=== PATIENT | female | born 1955 | race Caucasian/White ===

== ENCOUNTER 2023-08-30 08:20 | Emergency (ER) | payer MEDICARE, OTHER ==
[~2023-08-30] VITALS: Ht 160 cm; Wt 92.0 kg
[2023-08-30] MEDS ORDERED: hydrALAZINE INJECTION 20 MG/ML VIAL IV STA (08:34)
--- NOTE | 2023-08-30 08:38 | ED Neurological Problem ---
General Chief Complaint: General Problems/Pain Stated Complaint: LT SIDED NUMBNESS Source: patient History of Present Illness Date Seen by Provider: Aug 30, 2023 Time Seen by Provider: 08:21 Initial Comments 68-year-old female presenting with complaints of face and arm numbness on the left side that started around 7:45 AM. She states that this is resolved now. She denies any weakness or numbness in other areas. She did take her blood pressure and noted it was high so she took her dose of lisinopril and clonidine. She is supposed to be taking lisinopril daily but has had 1 time in the last week in the office today. She has clonidine just for when the blood pressure is high so she took a dose of that today. She does not regularly check her blood pressure so is unsure how high it usually runs. She denies having a difficulty swallowing, difficulty with her speech, chest pain, nausea, shortness of breath. She states that she had some blurred vision earlier but that has resolved as well. She has a history of hypertension but is not consistent with treating it. She also drinks at least several beers on a daily basis. Timing/Duration: 1/2 hour Severity: mild Associated Symptoms: No confusion, No fatigue, No fever/chills, No insomnia, No loss of consciousness, No muscle spasms, No nausea/vomiting, No numbness in legs/feet, No paresthesia, No ringing in ears, No seizures, No sleepy, No slurred speech, No tingling in legs/feet, No trouble walking, No weakness Allergies and Home Medications Allergies Coded Allergies: No Known Drug Allergies (Unverified , 08/30/23) Patient Home Medication List Home Medication List Reviewed: Yes Aspirin (Aspirin EC) 81 Mg Tablet.dr, 81 MG PO DAILY Prescribed by: BAILEE LAY on 08/30/23 1031 Clopidogrel Bisulfate (Plavix) 75 Mg Tablet, 75 MG PO DAILY Prescribed by: BAILEE LAY on 08/30/23 1031 Lisinopril (Lisinopril) 40 Mg Tablet, 40 MG PO DAILY Prescribed by: BAILEE LAY on 08/30/23 1042 Review of Systems Review of Systems Constitutional: No chills, No dizziness, No fever Eyes: Blurred Vision; Denies Photophobia, Denies Vision Changes Ears, Nose, Mouth, Throat: denies ear pain, denies ear discharge, denies nose pain, denies nose discharge, denies epistaxis Respiratory: No cough, No short of breath Cardiovascular: No chest pain, No edema, No palpitations Gastrointestinal: No abdominal pain, No nausea, No vomiting Genitourinary: No dysuria Musculoskeletal: no symptoms reported Skin: No rash Psychiatric/Neurological: Headache (mild frontal ), Numbness (left face and left arm started at 0745 but now resolved) Past Umxbbms-Fabztp-Crzyfr Hx Patient Social History Tobacco Use?: No Use of E-Cig and/or Vaping dev: No Substance use?: No Alcohol Use?: Yes Alcohol type: Beer Alcohol Frequency: Daily Past Medical History Surgery/Hospitalization HX: Hypertension Physical Exam Vital Signs Vital Signs - First Documented 08/30/23 08:44 Pulse 112 Resp 16 B/P (MAP) 256/121 (166) Pulse Ox 95 O2 Delivery Room Air Capillary Refill : Height, Weight, BMI Height: '" Weight: lbs. oz. kg; BMI Method: General Appearance: WD/WN, no apparent distress, obese HEENT: PERRL/EOMI, pharynx normal Neck: non-tender, full range of motion, supple, normal inspection Respiratory: chest non-tender, lungs clear, normal breath sounds, no respiratory distress, no accessory muscle use Cardiovascular: normal peripheral pulses, regular rate, rhythm Gastrointestinal: normal bowel sounds, non tender, soft, no pulsatile mass Extremities: normal range of motion, non-tender, normal capillary refill Neurologic/Psychiatric: maintenance planner II-XII nml as tested, no motor/sensory deficits, alert, normal mood/affect, oriented x 3 Crainal Nerves: normal hearing, normal speech, PERRL Coordination/Gait: normal gait Motor/Sensory: no motor deficit, no sensory deficit, no pronator drift Skin: normal color, warm/dry Stroke Onset of Symptoms Date of Onset of Symptoms: Aug 30, 2023 Time of Symptom Onset: 07:45 Onset of Symptoms: Yes Symptoms onset unknown: No NIH Stroke Scale Assessment Select: Initial Level of Consciousness: 0=Alert (0), Level of Consciousness- Questions: 1=Answers one question (1), LOC Commands: 0=Performs both tasks (0), Gaze: Normal (0), Visual Velazquez: 0=No visual loss (0), Facial Movement (Facial Paresis): 0=Normal symmetrical mnt (0), Motor Function-Arms Right: 0=No drift (0), Motor Function-Arms Left: 0=No drift (0), Motor Function-Legs Right: 0=No drift (0), Motor Function-Legs Left: 0=No drift (0), Limb Ataxia: 0=Absent (0), Sensory: 0=Normal:no loss (0), Best Language: 0=No aphasia (0), Dysarthria: 0=Normal (0), Extinction & Inattention: 0=No abnormality (0), Total: 1 Stroke Thrombolytic Exclusion Age 18 or Over: Yes Acute intenal hemorrhage: No History of CVA: No Uncontrolled Coagulation Defec: No Intracranial Hemorrhage: No Severe Hypertension: Yes GI or Bleed: No Subarachnoid Hemorrhage: No Intracranial Neoplasm/Aneurysm: No Oral Anticoagulants: No Surgery or Trauma: No Puncture of Non-Compressible V: No Recent CPR: No Diabetic Hemorrhagic Retinopat: No Organ Biopsy: No Recent Obstetric Delivery: No Glucose: No Significant Hepatic Dysfunctio: No NIH Stoke Scale >22: No Bacterial Endocarditis: No Pericarditis: No Improving Symptoms: No Platelets: No TPA Contraindication: Yes (Low NIH and rapid resolution of symptoms) Progress/Results/Core Measures Results/Orders Lab Results Laboratory Tests Test 08/30/23 08:22 08/30/23 08:35 08/30/23 08:51 Range/Units White Blood Count 6.7 4.3-11.0 10^3/uL Red Blood Count 4.94 3.80-5.11 10^6/uL Hemoglobin 14.9 11.5-16.0 g/dL Hematocrit 46 35-52 % Mean Corpuscular Volume 93 80-99 fL Mean Corpuscular Hemoglobin 30 25-34 pg Mean Corpuscular Hemoglobin Concent 32 32-36 g/dL Red Cell Distribution Width 13.2 10.0-14.5 % Platelet Count 291 130-400 10^3/uL Mean Platelet Volume 10.5 9.0-12.2 fL Immature Granulocyte % (Auto) 1 % Neutrophils (%) (Auto) 53 42-75 % Lymphocytes (%) (Auto) 36 12-44 % Monocytes (%) (Auto) 7 0-12 % Eosinophils (%) (Auto) 2 0-10 % Basophils (%) (Auto) 1 0-10 % Neutrophils # (Auto) 3.5 1.8-7.8 10^3/uL Lymphocytes # (Auto) 2.4 1.0-4.0 10^3/uL Monocytes # (Auto) 0.5 0.0-1.0 10^3/uL Eosinophils # (Auto) 0.2 0.0-0.3 10^3/uL Basophils # (Auto) 0.1 0.0-0.1 10^3/uL Immature Granulocyte # (Auto) 0.1 0.0-0.1 10^3/uL Percent Immature Platelet Fraction 4.4 0.0-7.6 % Prothrombin Time 13.2 12.2-14.7 SEC INR Comment 1.0 0.8-1.4 Activated Partial Thromboplast Time 23 L 24-35 SEC Sodium Level 141 135-145 MMOL/L Potassium Level 4.0 3.6-5.0 MMOL/L Chloride Level 101 98-107 MMOL/L Carbon Dioxide Level 28 21-32 MMOL/L Anion Gap 12 5-14 MMOL/L Blood Urea Nitrogen 12 7-18 MG/DL Creatinine 0.73 0.60-1.30 MG/DL Estimat Glomerular Filtration Rate 90 BUN/Creatinine Ratio 16 Glucose Level 165 H 70-105 MG/DL Calcium Level 9.4 8.5-10.1 MG/DL Corrected Calcium 9.1 8.5-10.1 MG/DL Total Bilirubin 0.4 0.1-1.0 MG/DL Aspartate Amino Transf (AST/SGOT) 22 5-34 U/L Alanine Aminotransferase (ALT/SGPT) 18 0-55 U/L Alkaline Phosphatase 78 40-136 U/L Troponin I < 0.30 <0.30 NG/ML Total Protein 7.6 6.4-8.2 GM/DL Albumin 4.4 3.2-4.5 GM/DL Serum Alcohol < 10 <10 MG/DL Urine Color YELLOW Urine Clarity CLEAR Urine pH 7.5 5-9 Urine Specific [place] 1.015 L 1.016-1.022 Urine Protein 1+ H NEGATIVE Urine Glucose (UA) TRACE H NEGATIVE Urine Ketones NEGATIVE NEGATIVE Urine Nitrite NEGATIVE NEGATIVE Urine Bilirubin NEGATIVE NEGATIVE Urine Urobilinogen 0.2 < = 1.0 MG/DL Urine Leukocyte Esterase NEGATIVE NEGATIVE Urine RBC (Auto) NEGATIVE NEGATIVE Urine RBC NONE /HPF Urine WBC 0-2 /HPF Urine Squamous Epithelial Cells 0-2 /HPF Urine Crystals NONE /LPF Urine Bacteria NEGATIVE /HPF Urine Casts NONE /LPF Urine Mucus NEGATIVE /LPF Urine Culture Indicated NO Glucometer 154 H 70-110 MG/DL My Orders Orders - BAILEE LAY MD Cbc And Automated Diff (08/30/23 08:34) Protime With Inr (08/30/23 08:34) Partial Thromboplastin Time (08/30/23 08:34) Comprehensive Metabolic Panel (08/30/23 08:34) Troponin I Fs (08/30/23 08:34) Ua Culture If Indicated (08/30/23 08:34) Chest 1 View Ap/Pa Only (08/30/23 08:34) Ekg Tracing (08/30/23 08:34) Nothing By Mouth (08/30/23 Breakfast) Accucheck Stat ONCE (08/30/23 08:34) Ed Iv/Invasive Line Start (08/30/23 08:34) Vital Signs Stroke Patient Q15M (08/30/23 08:34) Ct Head Wo-R/O Stroke (08/30/23 08:34) O2 (08/30/23 08:34) Intake & Output 06,14,22 (08/30/23 08:34) Monitor-Rhythm Ecg Trace Only (08/30/23 08:34) Dysphagia Screening Tool Q10MX1 (08/30/23 08:34) Hydralazine Injection (Hydralazine Injec (08/30/23 08:34) Alcohol (08/30/23 08:38) Ct Angio Head/Neck (08/30/23 09:11) Iohexol Injection (Omnipaque 350 Mg/Ml 1 (08/30/23 09:30) Received Contrast (Hold Metformin- Contr (08/30/23 09:30) Ns (Ivpb) 100 Ml (Sodium Chloride 0.9% 1 (08/30/23 09:30) Aspirin Chewable Tablet (Aspirin Chewabl (08/30/23 10:29) Clopidogrel Tablet (Clopidogrel Tablet) (08/30/23 10:29) Medications Given in ED Current Medications Medications Dose Ordered Sig/Berto Route Start Time Stop Time Status Last Admin Dose Admin Iohexol 75 ml ONCE ONCE IV 08/30/23 09:30 08/30/23 09:31 DC 08/30/23 09:36 75 ML Sodium Chloride 100 ml ONCE ONCE IV 08/30/23 09:30 08/30/23 09:31 DC 08/30/23 09:36 80 ML Vital Signs/I&O 08/30/23 08:44 Pulse 112 Resp 16 B/P (MAP) 256/121 (166) Pulse Ox 95 O2 Delivery Room Air Progress Progress Note #1: Progress Note Differential diagnosis includes TIA, stroke, hypertensive emergency, hypertensive urgency, uncontrolled hypertension, electrolyte imbalance. Obtain NIH stroke scale on patient's arrival and it was 1 with 1 off for stating the wrong month. She initially answered February but then corrected herself and said August. She was not having any numbness on exam now. She has no weakness on her exam. Establish peripheral IV access and send labs for complete blood count, comprehensive metabolic profile, coagulation factors, troponin, urinalysis. Electrocardiogram to look for signs of ischemia and placed on cardiac athletic monitor. My initial interpretation of the cardiac athletic monitor is that it shows a sinus rhythm with a heart rate in the 90s. CT scan of the head without contrast to evaluate for possible stroke with her having complaint of left-sided numbness in her face and left arm that has since resolved since onset at 7:45 AM. She is very hypertensive on arrival to the ED at 235/128. On recheck it is 214/117. She did take clonidine and lisinopril approximately 15 minutes prior to arrival in the ED. We will order a dose of hydralazine 10 mg IV to try and help with blood pressure. Chest x-ray 1 view to look for signs of heart failure or pathology to contribute to her hypertension. Progress Note #2: Time: 09:03 Progress Note Electrocardiogram does not show any acute ST elevation or ischemia. I reviewed the radiologist report on the CT scan of the head and the microvascular changes in multiple areas but no acute large territorial ischemia. After the hydralazine the patient's blood pressure did come down to 193/95. Her complete blood count did not show any acute abnormality as she had a normal white blood cell count of 6.7 and hemoglobin of 14.9 with platelets of 291. Her comprehensive metabolic profile shows no acute significant electrolyte abnormality. Her creatinine is 0.73. Glucose slightly elevated at 165. Troponin I is less than 0.3. Urinalysis has specific gravity of 1.015 with 1+ proteinuria. Her alcohol level was less than 10. She continues to be symptom free at this point. Will obtain a CT angiography of the head and neck to evaluate for any large vessel occlusion. As her symptoms are resolved and she has not had any recurrence this may still just be related back to her uncontrolled hypertension. We will stressed the importance of taking her blood pressure medicines as prescribed. Will advise to take a baby aspirin once a day for anti-platelet therapy with her TIA symptoms this am. Progress Note #3: Time: 10:09 Progress Note I reviewed the results of the CT angio head neck and did not show any carotid or vertebral stenosis or large vessel occlusion but she did have 80 to 90% stenosis of P1 P2 branches of the left MIX CHEMIST. I called and spoke with Dr. Forde the on- call stroke neurologist at and reviewed the patient's presentation and findings as well as her labs and imaging. As she is currently not having any symptoms and they had resolved prior to arrival it may still just be related to her high blood pressure but she recommended dual antiplatelet therapy for 21 days and then dropping to single antiplatelet therapy after that. She also recommended trying to maximize the medical management with her blood pressure and that she would need lipid testing and high-dose statin if she was having elevated lipids. Will start the patient on aspirin and Plavix from here and recommend taking her blood pressure medicines as prescribed as well as getting in with her primary care provider for testing of her cholesterol and lipid levels as well as further risk stratification as indicated. Counseled on follow-up and return precautions. At the time of discharge patient's blood pressure is now down to 169/93. She is hemodynamically stable otherwise and has had no recurrence of any symptoms. Initial ECG Impression Date: Aug 30, 2023 Initial ECG Impression Time: 08:38 Initial ECG Rate: 96 Initial ECG Rhythm: Normal Sinus Initial ECG Intervals: Normal Initial ECG Comparisson: No Previous ECG Available Comment On my personal interpretation and review the electrocardiogram shows a sinus rhythm with a heart rate of 96 bpm. NC interval [address] elevation. QT interval 342 ms with a QTc interval 395 ms. There is no prior tracing available for comparison. Diagnostic Imaging Diagonstic Imaging: Xray Plain Films/CT/US/NM/MRI: chest Comments [facility] [place], [place] NAME: BECKIE DUNN [facility] REC#: [id number] PT STATUS: REG ER : 1955 PHYSICIAN: BAILEE LAY MD ADMIT DATE: 08/30/23/ER FS Signed Date of Exam:08/30/23 CHEST 1 VIEW AP/PA ONLY CHEST 1 VIEW AP/PA ONLY Indication: Hypertension Comparison: None available. Findings: No focal airspace disease in the visualized lungs. No pleural effusion or pneumothorax. Mild enlargement of the cardiac silhouette. Impression: 1. No acute cardiopulmonary process by portable radiography. Dictated by: Dictated on workstation # [id number] Dict: 08/30/23905 Trans: 08/30/23905 [facility] [id number] Interpreted by: JARRED VILLARREAL MD Electronically signed by: JARRED VILLARREAL MD 08/30/23905 Reviewed: Reviewed by Or Diagonstic Imaging: CT Plain Films/CT/US/NM/MRI: head Comments NAME: BECKIE DUNN [facility] REC#: [id number] PT STATUS: REG ER : 1955 PHYSICIAN: BAILEE LAY MD ADMIT DATE: 08/30/23/ER FS Draft Date of Exam:08/30/23 CT HEAD WO-R/O STROKE EXAMINATION: CT head without contrast. TECHNIQUE: Multiple contiguous axial images were obtained through the brain without the use of intravenous contrast. All CT scans use one or more of the following dose optimizing techniques: automated exposure control, MA and/or KvP adjustment based on patient size and exam type or iterative reconstruction. HISTORY: Left arm and facial numbness. Stroke. COMPARISON: None available. FINDINGS: No large acute territorial ischemia, mass, or hemorrhage. No midline shift or mass effect. Decreased attenuation is seen in the periventricular and subcortical white matter. The ventricles and cortical sulci are symmetric. The basilar cisterns are patent and unremarkable. The orbits are normal. Paranasal sinuses are normal. Mastoid air cells are clear. No soft tissue abnormality is seen. No osseus lesions or fractures are seen. IMPRESSION: 1. No large acute territorial ischemia, mass, or hemorrhage. 2. Scattered age-indeterminate microvascular disease. This could be further evaluated with MRI brain. Dictated on workstation # [id number] Dict: 08/30/23 0856 Trans: 08/30/23 0901 [id number] Interpreted by: NAVEED BURGOS DO Electronically signed by: Reviewed: Reviewed by Me (Reviewed radiology report at 0903 am) Diagonstic Imaging: CT Plain Films/CT/US/NM/MRI: head (angiography head and neck) Comments [facility] [place] [place] NAME: BECKIE DUNN [facility] REC#: [id number] PT STATUS: REG ER : 1955 PHYSICIAN: BAILEE LAY MD ADMIT DATE: 08/30/23/ER FS Signed Date of Exam:08/30/23 CT ANGIO HEAD/NECK PROCEDURE: CT angiography of the head and CT angiography of the neck with and without contrast. TECHNIQUE: Contiguous noncontrast images were obtained from the skull base through the vertex. After intravenous contrast administration, helical CT angiography of the neck was performed. Source data was reformatted into 3D MIP projections. Delayed post contrast acquisition was also obtained. Auto Exposure Controls were utilized during the CT exam to meet ALARA standards for radiation dose reduction. INDICATION: Left-sided facial and arm numbness. Stroke. Comparison: CT head performed the same date. FINDINGS: CTA Neck: The visualized portions of the aortic arch demonstrate no evidence of aneurysm or dissection. There is common origin of the carotid arteries, consistent with bovine arch. The brachiocephalic artery is normal in course and caliber. The right and left common carotid origins are unremarkable. The origin of the left subclavian artery is patent. The common carotid arteries and internal carotid arteries demonstrate a tortuous course. There is a small amount of calcified atherosclerotic plaque in the bilateral carotid bulbs and proximal internal carotid arteries without flow-limiting stenosis. No evidence of dissection in the carotid systems. The external carotid arteries are patent and unremarkable. The left vertebral artery is dominant. The origin of the right vertebral artery is seen and is unremarkable. The origin of the left vertebral artery is seen and is unremarkable. The right vertebral artery is diminutive. There is no dissection. The osseous structures of the cervical spine are unremarkable. Included views through the lung apices demonstrate no focal consolidation. CTA brain: No stenosis or aneurysm is seen in the intracranial portion of the bilateral ICA. There is high-grade stenosis of 80-90% in the junction of the P1/P2 segments of the left MIX CHEMIST. Flow is seen distal to the stenosis. No stenosis is seen in the bilateral anterior and middle cerebral arteries and right posterior cerebral artery. No evidence of aneurysm the [place]. The right vertebral artery ends in PICA. Both the right and left PICA arteries are identified. The basilar artery is normal in course and caliber. The terminal branch vessels including the superior cerebellar arteries unremarkable. IMPRESSION: 1. 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 Flow is seen distal to the stenosis. 2. Otherwise, no high-grade stenosis or aneurysm in the [place]. No large vessel occlusion. 3. No stenosis or dissection the bilateral carotid and vertebral arteries. Dictated by: Dictated on workstation # [id number] Dict: 08/30/23 0947 Trans: 08/30/23 1017 COUNT INCLUDES THE [facility] [id number] Interpreted by: NAVEED BURGOS DO Electronically signed by: NAVEED BURGOS DO 08/30/23 1017 Reviewed: Reviewed by Me Critical Care Note Critical Care Total Time (minutes) 30 minutes Progress I spent at least 30 minutes of critical care time with the patient. Time excludes separately billable procedures. Time was spent in obtaining history from the patient, ordering tests and reviewing results, ordering interventions and reviewing response, discussion with consultants, documentation in the chart. Patient was at risk of neurologic compromise and collapse as well as possible cardiovascular compromise and collapse with her uncontrolled hypertension and stroke/TIA symptoms. She required my immediate and direct intervention and management to stabilize her condition. 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 Decision time for Depature: 10:30 Referrals: CAMELIA GUERRERO APRN (PCP) Primary Care Physician [facility] (Family) Primary Care Physician Patient Instructions: High Blood Pressure ED, Transient Ischemic Attack ED, Going Home on Blood Thinners , Risk Factors for Stroke Add. Discharge Instructions: You need to be more diligent with taking your blood pressure medicine as prescribed. For your mini stroke or TIA symptoms today we would recommend that you take aspirin and Plavix for at least the next 21 days. After that you could drop down to just taking aspirin daily. You need to follow-up with the clinic to help maximize your medical treatment of your blood pressure as well as evaluate your cholesterol and lipid status and additional risk stratification testing for stroke. If you have new or worsening symptoms you should be seen right away. All discharge instructions reviewed with patient and/or family. Voiced understanding. Scripts Lisinopril (Lisinopril) 40 Mg Tablet 40 MG PO DAILY for Blood Pressure for 30 Days, #30 TAB 0 Refills Prov: BAILEE LAY MD 08/30/23 Aspirin (Aspirin EC) 81 Mg Tablet.dr 81 MG PO DAILY for TIA for 21 Days, #21 TAB 0 Refills Prov: BAILEE LAY MD 08/30/23 Clopidogrel Bisulfate (Plavix) 75 Mg Tablet 75 MG PO DAILY for TIA for 21 Days, #21 TAB 0 Refills Prov: BAILEE LAY MD 08/30/23 BAILEE LAY MD Aug 30, 2023 08:38
[2023-08-30 08:44] VITALS: BP 256/121
[2023-08-30 08:44] LABS: BILIRUBIN,URINE NEGATIVE (NEGATIVE); CLARITY,URINE CLEAR; COLOR,URINE YELLOW; GLUCOSE, URINE (UA) TRACE (NEGATIVE); KETONES,URINE NEGATIVE (NEGATIVE); LEUKOCYTE ESTERASE ,URINE NEGATIVE (NEGATIVE); NITRITE,URINE NEGATIVE (NEGATIVE); PH,URINE 7.5 (5-9); PROTEIN,URINE 1+ (NEGATIVE)
[2023-08-30 08:48] LABS: BASOPHILS # (AUTO) 0.1 10^3/uL (0.0-0.1); BASOPHILS % (AUTO) 1 % (0-10); EOSINOPHILS # (AUTO) 0.2 10^3/uL (0.0-0.3); EOSINOPHILS % (AUTO) 2 % (0-10); HEMATOCRIT 46 % (35-52); HEMOGLOBIN 14.9 g/dL (11.5-16.0); LYMPHOCYTES # (AUTO) 2.4 10^3/uL (1.0-4.0); LYMPHOCYTES % (AUTO) 36 % (12-44); MEAN CORPUSCULAR HEMOGLOBIN 30 pg (25-34); MEAN CORPUSCULAR HGB CONC 32 g/dL (32-36); MEAN CORPUSCULAR VOLUME 93 fL (80-99); MEAN PLATELET VOLUME 10.5 fL (9.0-12.2); MONOCYTES # (AUTO) 0.5 10^3/uL (0.0-1.0); MONOCYTES % (AUTO) 7 % (0-12); NEUTROPHILS # (AUTO) 3.5 10^3/uL (1.8-7.8); NEUTROPHILS % (AUTO) 53 % (42-75); PLATELET COUNT 291 10^3/uL (130-400); WHITE BLOOD COUNT 6.7 10^3/uL (4.3-11.0)
[2023-08-30 09:00] LABS: BACTERIA,URINE NEGATIVE /HPF; WBC,URINE 0-2 /HPF
[2023-08-30 09:01] LABS: SQUAMOUS EPITHELIAL CELL,UR 0-2 /HPF
--- NOTE | 2023-08-30 09:01 | Diagnostic Imaging Report ---
EXAMINATION: CT head without contrast. TECHNIQUE: Multiple contiguous axial images were obtained through the brain without the use of intravenous contrast. All CT scans use one or more of the following dose optimizing techniques: automated exposure control, MA and/or KvP adjustment based on patient size and exam type or iterative reconstruction. HISTORY: Left arm and facial numbness. Stroke. COMPARISON: None available. FINDINGS: No large acute territorial ischemia, mass, or hemorrhage. No midline shift or mass effect. Decreased attenuation is seen in the periventricular and subcortical white matter. The ventricles and cortical sulci are symmetric. The basilar cisterns are patent and unremarkable. The orbits are normal. Paranasal sinuses are normal. Mastoid air cells are clear. No soft tissue abnormality is seen. No osseus lesions or fractures are seen. IMPRESSION: 1. No large acute territorial ischemia, mass, or hemorrhage. 2. Scattered age-indeterminate microvascular disease. This could be further evaluated with MRI brain. Dictated by: Dictated on workstation # [id number]
[2023-08-30 09:02] LABS: PROTHROMBIN TIME PATIENT 13.2 SEC (12.2-14.7)
[2023-08-30 09:03] LABS: ALKALINE PHOSPHATASE 78 U/L (40-136); BILIRUBIN,TOTAL 0.4 MG/DL (0.1-1.0); BUN/CREATININE RATIO 16; CALCIUM 9.4 MG/DL (8.5-10.1); CARBON DIOXIDE 28 MMOL/L (21-32); CHLORIDE 101 MMOL/L (98-107); CREATININE SERUM 0.73 MG/DL (0.60-1.30); GFR ESTIMATED 90; GLUCOSE 165 MG/DL (70-105); SODIUM 141 MMOL/L (135-145)
[2023-08-30 09:04] LABS: ALANINE AMINOTRANSFERASE 18 U/L (0-55); ALBUMIN 4.4 GM/DL (3.2-4.5); TOTAL PROTEIN 7.6 GM/DL (6.4-8.2)
--- NOTE | 2023-08-30 09:08 | Diagnostic Imaging Report ---
CHEST 1 VIEW AP/PA ONLY Indication: Hypertension Comparison: None available. Findings: No focal airspace disease in the visualized lungs. No pleural effusion or pneumothorax. Mild enlargement of the cardiac silhouette. Impression: 1. No acute cardiopulmonary process by portable radiography. Dictated by: Dictated on workstation # [id number]
[2023-08-30] MEDS ORDERED: NS 100 ML (IVPB) BAG IV ONE (09:30)
[2023-08-30] MEDS ORDERED: IOHEXOL 350 MG/ML 100 ML (OMNIPAQUE 350) VIAL IV ONE (09:30)
[2023-08-30] MEDS ORDERED: HOLD METFORMIN - RECEIVED CONTRAST 20 ML VIAL IV SCH (09:30)
--- NOTE | 2023-08-30 09:57 | Diagnostic Imaging Report ---
PROCEDURE: CT angiography of the head and CT angiography of the neck with and without contrast. TECHNIQUE: Contiguous noncontrast images were obtained from the skull base through the vertex. After intravenous contrast administration, helical CT angiography of the neck was performed. Source data was reformatted into 3D MIP projections. Delayed post contrast acquisition was also obtained. Auto Exposure Controls were utilized during the CT exam to meet ALARA standards for radiation dose reduction. INDICATION: Left-sided facial and arm numbness. Stroke. Comparison: CT head performed the same date. FINDINGS: CTA Neck: The visualized portions of the aortic arch demonstrate no evidence of aneurysm or dissection. There is common origin of the carotid arteries, consistent with bovine arch. The brachiocephalic artery is normal in course and caliber. The right and left common carotid origins are unremarkable. The origin of the left subclavian artery is patent. The common carotid arteries and internal carotid arteries demonstrate a tortuous course. There is a small amount of calcified atherosclerotic plaque in the bilateral carotid bulbs and proximal internal carotid arteries without flow-limiting stenosis. No evidence of dissection in the carotid systems. The external carotid arteries are patent and unremarkable. The left vertebral artery is dominant. The origin of the right vertebral artery is seen and is unremarkable. The origin of the left vertebral artery is seen and is unremarkable. The right vertebral artery is diminutive. There is no dissection. The osseous structures of the cervical spine are unremarkable. Included views through the lung apices demonstrate no focal consolidation. CTA brain: No stenosis or aneurysm is seen in the intracranial portion of the bilateral ICA. There is high-grade stenosis of 80-90% in the junction of the P1/P2 segments of the left [employer]. Flow is seen distal to the stenosis. No stenosis is seen in the bilateral anterior and middle cerebral arteries and right posterior cerebral artery. No evidence of aneurysm the [place]. The right vertebral artery ends in PICA. Both the right and left PICA arteries are identified. The basilar artery is normal in course and caliber. The terminal branch vessels including the superior cerebellar arteries unremarkable. IMPRESSION: 1. 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 Flow is seen distal to the stenosis. 2. Otherwise, no high-grade stenosis or aneurysm in the [place]. No large vessel occlusion. 3. No stenosis or dissection the bilateral carotid and vertebral arteries. Dictated by: Dictated on workstation # [id number]
[2023-08-30] MEDS ORDERED: CLOPIDOGREL 75 MG TABLET PO STA (10:29)
[2023-08-30] MEDS ORDERED: ASPIRIN 81 MG CHEWABLE TABLET PO STA (10:29)
[2023-08-30] MEDS ORDERED: ASPI-1238 PO (10:31)
[2023-08-30] MEDS ORDERED: CLOP-31 PO (10:31)
[2023-08-30] MEDS ORDERED: LISI40TA9 PO (10:42)
== END 2023-08-30 10:35 | disposition home or self-care (01) ==
LOC: EDUNIT# 08:20 → ER FS 08:22
DX: G45.9 Transient cerebral ischemic attack, unspecified (principal); I66.22 Occlusion and stenosis of left posterior cerebral artery; I10 Essential (primary) hypertension; E66.9 Obesity, unspecified; Z68.35 Body mass index [BMI] 35.0-35.9, adult
CPT/HCPCS: 36415; 70450; 70496; 70498; 71045; 80053; 81000; 82947; 84484; 85025; 85610; 85730; 93005; 93041; 96374; 99284; G0480; 80320; Q9967